=== PATIENT | male | born 1990 | race Caucasian/White ===

== ENCOUNTER 2020-09-22 07:45 | Emergency (ER) | payer OTHER ==
[2020-09-22] MEDS ORDERED: ASPIRIN 81 MG CHEWABLE TABLET ONE (08:41)
[2020-09-22] MEDS ORDERED: FAMOTIDINE 20 MG TAB ONE (08:41)
--- NOTE | 2020-09-22 08:42 | ER ---
Nurse's Notes [facility] Name: Brent Ayers Age: 30 yrs Sex: Male : 1990 Arrival Date: 09/22/2020 Time: 07:50 Bed 5 Private MD: Diagnosis: Chest pain, unspecified;Diarrhea, unspecified;Cough Presentation: 09/22 07:59 Chief complaint: Patient states: Dry cough, sore chest with coughing, fatigue, diarrhea jl7 and body aches since yesterday, denies fever, sent from work to be tested for flu and COVID. Coronavirus screen: Client denies travel out of the [place] in the last 14 days. cough unrelated to allergies, diarrhea, fatigue, muscle pain. Ebola Screen: No symptoms or risks identified at this time. Initial Sepsis Screen: Does the patient meet any 2 criteria? No. Patient's initial sepsis screen is negative. Does the patient have a suspected source of infection? No. Patient's initial sepsis screen is negative. Risk Assessment: Do you want to hurt yourself or someone else? Patient reports no desire to harm self or others. Onset of symptoms was September 21, 2020. Care prior to arrival: None. 07:59 Method Of Arrival: Ambulatory jl7 07:59 Acuity: BLANCA 4 jl7 Triage Assessment: 08:11 General: Appears in no apparent distress. uncomfortable, Behavior is calm, cooperative, jl7 appropriate for age. Pain: Complains of pain in chest Pain does not radiate. Pain currently is 0 out of 10 on a pain scale. at worst was 5 out of 10 on a pain scale. Quality of pain is described as Sore Pain began 1 day ago. Is episodic, Aggravated by coughing. Neuro: Level of Consciousness is awake, alert, obeys commands, Oriented to person, place, time, situation. Cardiovascular: Patient's skin is warm and dry. Rhythm is sinus rhythm Chest pain chest soreness with coughing. Respiratory: Reports cough that is dry, Airway is patent Respiratory effort is even, unlabored, Respiratory pattern is regular, symmetrical, Denies shortness of breath. GI: Reports diarrhea. Derm: Skin is pink, warm \T\ dry. Historical: - Allergies: 08:11 No Known Allergies; jl7 - Home Meds: 08:11 losartan oral oral [Active]; jl7 - PMHx: 08:11 Hypertension; jl7 - PSHx: 08:11 None; jl7 - Immunization history:: Adult Immunizations not up to date. - Social history:: Smoking status: Patient denies any tobacco usage or history of. - Family history:: not pertinent. Screenin:14 Abuse screen: Denies threats or abuse. Denies injuries from another. Nutritional jl7 screening: No deficits noted. Tuberculosis screening: No symptoms or risk factors identified. Fall Risk None identified. Assessment: 08:14 General: See triage assessment. jl7 Vital Signs: 07:58 BP 150 / 98; Pulse 67; Resp 20; Temp 97.8(O); Pulse Ox 98% on R/A; Weight 124.74 kg; 3 Height 5 ft. 10 in. (177.80 cm); Pain 5/10; 07:59 Pain 5/10; jl7 08:14 BP 137 / 90; Pulse 66; Resp 17; Pulse Ox 96% ; Pain 0/10; jl7 07:58 Body Mass Index 39.46 (124.74 kg, 177.80 cm) [facility] ED Course: 07:50 Patient arrived in ED. ds1 07:51 Ana Wei, ESTHELA is Primary Nurse. jl7 07:55 Kit Merino MD is Attending Physician. [facility] 08:02 Triage completed. jl7 08:11 Arm band placed on right wrist. jl7 08:14 Patient has correct armband on for positive identification. Placed in gown. Bed in low jl7 position. Call light in reach. Side rails up X 1. pvc monitor on. Pulse ox on. NIBP on. 08:14 Flu and/or RSV swab sent to lab. COVID-19 swab sent to lab. Patient maintains SpO2 jl7 saturation greater than 95% on room air. 08:30 Chest Single View XRAY In Process Unspecified. EDMS 08:39 EKG done, by ED staff, reviewed by Kit Merino MD. [facility] 08:41 Matheus Alvares MD is Referral Physician. [facility] 09:05 No provider procedures requiring assistance completed. Patient did not have IV access jl7 during this emergency room visit. Administered Medications: 08:33 Drug: Aspirin Chewable Tablet 162 mg Route: PO; jl7 09:06 Follow up: Response: No adverse reaction jl7 08:33 Drug: Pepcid 20 mg Route: PO; 09:06 Follow up: Response: No adverse reaction 08:55 Drug: Zithromax 500 mg Route: PO; 09:06 Follow up: Response: Medication administered at discharge. 08:55 Drug: Decadron 10 mg Route: IM; Site: right vastus lateralis; 09:06 Follow up: Response: Medication administered at discharge. jl7 Outcome: 08:41 Discharge ordered by MD. verdin 09:05 Discharged to home ambulatory. 09:05 Condition: stable 09:05 Discharge instructions given to patient, Instructed on discharge instructions, follow up and referral plans. medication usage, Demonstrated understanding of instructions, follow-up care, medications, Prescriptions given X 4. 09:07 Patient left the ED. jl7 Signatures: Dispatcher [employer] EDKit Fleming MD MD cha Sanford, Qiana ds1 Ana Wei RN RN jl7 Mallory Muhammad 3
--- NOTE | 2020-09-22 08:42 | EDPHYS ---
Physician Documentation [facility] Name: Brent Ayers Age: 30 yrs Sex: Male : 1990 Arrival Date: 09/22/2020 Time: 07:50 Bed 5 Private MD: YING Physician Kit Merino HPI: 09/22 08:04 This 30 yrs old Male presents to ER via Ambulatory with complaints of Chest velvet Pain, Cough, Diarrhea. 08:04 The patient or guardian reports chest pain that is located primarily in the anterior [facility] chest wall. The pain does not radiate. Associated signs and symptoms: The patient has no apparent associated signs or symptoms. The chest pain is described as aching. Duration: The patient or guardian reports multiple episodes, that are intermittent. Modifying factors: The symptoms are alleviated by remaining still, the symptoms are aggravated by cough. Severity of pain: At its worst the pain was mild. Historical: - Allergies: 08:11 No Known Allergies; jl7 - Home Meds: 08:11 losartan oral oral [Active]; jl7 - PMHx: 08:11 Hypertension; jl7 - PSHx: 08:11 None; jl7 - Immunization history:: Adult Immunizations not up to date. - Social history:: Smoking status: Patient denies any tobacco usage or history of. - Family history:: not pertinent. ROS: 08:09 Constitutional: Negative for fever, chills, and weight loss, Eyes: Negative for injury, velvet pain, redness, and discharge, ENT: Negative for injury, pain, and discharge, Neck: Negative for injury, pain, and swelling, Cardiovascular: Negative for chest pain, palpitations, and edema, Back: Negative for injury and pain, : Negative for injury, bleeding, discharge, and swelling, MS/Extremity: Negative for injury and deformity, Skin: Negative for injury, rash, and discoloration, Neuro: Negative for headache, weakness, numbness, tingling, and seizure, Psych: Negative for depression, anxiety, suicide ideation, homicidal ideation, and hallucinations, Allergy/Immunology: Negative for hives, rash, and allergies, Endocrine: Negative for neck swelling, polydipsia, polyuria, polyphagia, and marked weight changes, Hematologic/Lymphatic: Negative for swollen nodes, abnormal bleeding, and unusual bruising. 08:09 Respiratory: Positive for cough. 08:09 Abdomen/GI: Positive for diarrhea. Exam: 08:09 Constitutional: This is a well developed, well nourished patient who is awake, alert, velvet and in no acute distress. Head/Face: Normocephalic, atraumatic. Eyes: Pupils equal round and reactive to light, extra-ocular motions intact. Lids and lashes normal. Conjunctiva and sclera are non-icteric and not injected. Cornea within normal limits. Periorbital areas with no swelling, redness, or edema. ENT: Nares patent. No nasal discharge, no septal abnormalities noted. Tympanic membranes are normal and external auditory canals are clear. Oropharynx with no redness, swelling, or masses, exudates, or evidence of obstruction, uvula midline. Mucous membranes moist. Neck: Trachea midline, no thyromegaly or masses palpated, and no cervical lymphadenopathy. Supple, full range of motion without nuchal rigidity, or vertebral point tenderness. No Meningismus. Chest/axilla: Normal chest wall appearance and motion. Nontender with no deformity. No lesions are appreciated. Cardiovascular: Regular rate and rhythm with a normal S1 and S2. No gallops, murmurs, or rubs. Normal PMI, no JVD. No pulse deficits. Back: No spinal tenderness. No costovertebral tenderness. Full range of motion. Male : Normal genitalia with no discharge or lesions. Skin: Warm, dry with normal turgor. Normal color with no rashes, no lesions, and no evidence of cellulitis. MS/ Extremity: Pulses equal, no cyanosis. Neurovascular intact. Full, normal range of motion. Neuro: Awake and alert, GCS 15, oriented to person, place, time, and situation. Cranial nerves II-XII grossly intact. Motor strength 5/5 in all extremities. Sensory grossly intact. Cerebellar exam normal. Normal gait. Psych: Awake, alert, with orientation to person, place and time. Behavior, mood, and affect are within normal limits. 08:09 Respiratory: the patient does not display signs of respiratory distress, Respirations: normal, no acute changes, Breath sounds: are clear throughout, no bronchial sounds, no decreased breath sounds, no rales, rhonchi, no stridor, no wheezing. 08:09 Abdomen/GI: Inspection: distension, Bowel sounds: normal, Palpation: abdomen is soft and non-tender, Liver: no appreciated palpable abnormalities, Hernia: not appreciated. 08:09 Musculoskeletal/extremity: Extremities: all appear grossly normal, with no appreciated pain with palpation, ROM: no acute changes, Circulation is intact in all extremities. Sensation intact. Compartment Syndrome exam of affected extremity: is normal. DVT Exam: No signs of deep vein thrombosis. no pain, no swelling, no tenderness, negative Homans' sign noted on exam, no appreciated bluish discoloration, no erythema, no increased warmth. 08:44 ECG was reviewed by the Attending Physician. [facility] Vital Signs: 07:58 BP 150 / 98; Pulse 67; Resp 20; Temp 97.8(O); Pulse Ox 98% on R/A; Weight 124.74 kg; 3 Height 5 ft. 10 in. (177.80 cm); Pain 5/10; 07:59 Pain 5/10; jl7 08:14 BP 137 / 90; Pulse 66; Resp 17; Pulse Ox 96% ; Pain 0/10; jl7 07:58 Body Mass Index 39.46 (124.74 kg, 177.80 cm) 3 MDM: 07:55 Patient medically screened. velvet 08:20 Differential diagnosis: abnormal EKG, viral gastroenteritis, gastroesophageal reflux velvet disease (GERD), pneumonia. HEART Score: History: Slightly Suspicious (0), ECG: Normal (0), Age: < or = 45 years (0), Risk Factors: No Risk Factors Known (0), Total Score = 0. Differential Diagnosis: Influenza Upper Respiratory Infection Pneumonia. The patient's deep vein thrombosis risk score was calculated as follows: Total Score: 0. This patient was found to be at low risk for a deep vein thrombosis by using the Well's assessment criteria. The patient's pulmonary embolism risk score was calculated as follows: Total Score: 0-2 points. This patient was found to be at low risk for a pulmonary embolism by using the Well's assessment criteria. KRYS Risk Score: TOTAL SCORE = 0. Data reviewed: vital signs, nurses notes, lab test result(s), radiologic studies, plain films. Data interpreted: bus monitor: rate is 66 beats/min, rhythm is regular. Test interpretation: by ED physician or midlevel provider: ECG, plain radiologic studies. Counseling: I had a detailed discussion with the patient and/or guardian regarding: the historical points, exam findings, and any diagnostic results supporting the discharge/admit diagnosis, lab results, radiology results. 09/22 08:03 Order name: COVID-19 [facility] 09/22 08:03 Order name: Flu [facility] 09/22 08:03 Order name: Chest Single View XRAY [facility] 09/22 08:23 Order name: EKG; Complete Time: 08:23 [facility] 09/22 08:23 Order name: EKG - Nurse/Tech; Complete Time: 08:33 [facility] EC:44 Rate is 57 beats/min. Rhythm is regular. QRS [place] is Normal. [place] interval is normal. QRS velvet interval is normal. QT interval is normal. No Q waves. T waves are Normal. No ST changes noted. Clinical impression: NSR w/ Non-specific ST/T Changes and No evidence of ischemia. Interpreted by me. Reviewed by me. Administered Medications: 08:33 Drug: Aspirin Chewable Tablet 162 mg Route: PO; jl7 09:06 Follow up: Response: No adverse reaction [facility] 08:33 Drug: Pepcid 20 mg Route: PO; jl7 09:06 Follow up: Response: No adverse reaction jl7 08:55 Drug: Zithromax 500 mg Route: PO; jl7 09:06 Follow up: Response: Medication administered at discharge. jl7 08:55 Drug: Decadron 10 mg Route: IM; Site: right vastus lateralis; jl7 09:06 Follow up: Response: Medication administered at discharge. jl7 Disposition: 09/22/20 08:41 Discharged to Home. Impression: Chest pain, unspecified, Diarrhea, unspecified, Cough. - Condition is Stable. - Discharge Instructions: Nonspecific Chest Pain, Diarrhea, Adult, Nonspecific Chest Pain, [id number], Diarrhea, Adult, Lqwq-[id number], Cough, Adult, Eioo-sq-[id number], Aspirin and Your Heart, Cough, Adult, COVID-19. - Prescriptions for multivitamin - take 1 tablet by ORAL route once daily; 30 tablet. Pepcid 20 mg Oral Tablet - take 1 tablet by ORAL route every 12 hours for 10 days; 20 tablet. dexamethasone 2 mg Oral tablet - take 1 tablet by ORAL route 3 times per day; 15 tablet. Zithromax 500 mg Oral Tablet - take 1 tablet by ORAL route once daily for 5 days; 5 tablet. - Medication Reconciliation Form, Thank You Letter, Antibiotic Education, Prescription Opioid Use, Work release form form. - Follow up: Matheus Alvares; When: 2 - 3 days; Reason: Recheck today's complaints, Continuance of care, Re-evaluation by your physician. - Problem is new. - Symptoms have improved. Signatures: Dispatcher [employer] EDKit Fleming MD MD cha Leal, Jahala, RN RN jl7 Corrections: (The following items were deleted from the chart) 09:07 08:41 09/22/2020 08:41 Discharged to Home. Impression: Chest pain, unspecified; jl7 Diarrhea, unspecified; Cough. Condition is Stable. Discharge Instructions: Nonspecific Chest Pain, Diarrhea, Adult, Nonspecific Chest Pain, Lbhj-il-Nact, Diarrhea, Adult, Brlu-jl-Schq, Cough, Adult, [id number], Aspirin and Your Heart, Cough, Adult, COVID-19. Prescriptions for multivitamin - take 1 tablet by ORAL route once daily; 30 tablet, Pepcid 20 mg Oral Tablet - take 1 tablet by ORAL route every 12 hours for 10 days; 20 tablet. and Forms are Medication Reconciliation Form, Thank You Letter, Antibiotic Education, Prescription Opioid Use. Follow up: Matheus Alvares; When: 2 - 3 days; Reason: Recheck today's complaints, Continuance of care, Re-evaluation by your physician. Problem is new. Symptoms have improved. velvet
[2020-09-22] MEDS ORDERED: dexAMETHasone 4 MG/ML VIAL ONE (09:08)
[2020-09-22] MEDS ORDERED: AZITHROMYCIN 250 MG TAB ONE (09:08)
[2020-09-22 09:12] VITALS: TEMP 97.8
[2020-09-22 09:14] VITALS: BP 137/90; O2SAT 96
--- NOTE | 2020-09-22 12:02 | RAD REPORT ---
EXAM DESCRIPTION: RAD - Chest Single View - 09/22/2020 8:30 am CLINICAL HISTORY: COUGH Chest pain. COMPARISON: No comparisons FINDINGS: Portable technique limits examination quality. The lungs are grossly clear. The heart is normal in size. No displaced fractures. IMPRESSION: No acute intrathoracic process suspected.
--- NOTE | 2020-09-23 07:25 | EKG ---
Test Date: 2020-09-22 Test Time: 08:35:11 Cow Tender: ALESHA MEASUREMENT RESULTS: Intervals: Rate: 57 LA: 174 QRSD: 100 QT: 416 QTc: 404 [place]: P: 38 LA: 174 QRS: 23 T: 50 INTERPRETIVE STATEMENTS: Sinus bradycardia Nonspecific T wave abnormality Abnormal ECG No previous ECG available for comparison Electronically Signed On 09-23-20 07:23:33 [employer] by Bon Lehman
== END 2020-09-22 09:07 | disposition home or self-care (01) ==
LOC: ER 07:45
DX: R05 Cough (principal); Z20.828 Contact with and (suspected) exposure to other viral communicable diseases; R19.7 Diarrhea, unspecified; I10 Essential (primary) hypertension
CPT/HCPCS: 93005; 87804 ×2; 71045; 96372; 99285; U0002; J1100